=== PATIENT | female | born 1950 | race Caucasian/White ===

== ENCOUNTER → 2016-12-30 | Outpatient (CLI) | payer MEDICARE ==
[~2016-12-30] MED LIST: CANA100T PO; CARB200T PO; CITA20TA9 PO; CLON0.5T PO; CYCL-259 PO; ESZO1TAB6 PO; HYDR-3307 PO; LEVO7.5T PO; LISI-170 PO; LISI40TA PO; METF10002 PO; METF500T3 PO; METO-95 PO; MIRT30TA PO; OMEP40CA3 PO; OXYB10TA6 PO; SENN-1 PO; ZOLP-413 PO
== END | disposition home or self-care (01) ==
LOC: CFH 14:00
PROVIDERS: ATTEND Nurse Practitioner
DX: Z12.31 Encounter for screening mammogram for malignant neoplasm of breast (principal)
CPT/HCPCS: G0202

== ENCOUNTER 2017-05-13 18:11 | Emergency (ER) | payer MEDICARE ==
[~2017-05-13] VITALS: Ht 167.6 cm; Wt 117.0 kg
[~2017-05-13 18:11] MED LIST changes: +QUET100T4 PO; +SITA100T PO; +SUCR1ORA11 PO; +ZOLP12.52 PO
[2017-05-13] MEDS ORDERED: BUPIVACAINE 0.25% INFIL ONE (18:30)
[2017-05-13] MEDS ORDERED: LIDOCAINE 1%, 20ML SQ ONE (18:30)
[2017-05-13] MEDS ORDERED: BUPIVACAINE 0.25% ONE (18:37)
[2017-05-13] MEDS ORDERED: LIDOCAINE 1%, 20ML ONE (18:37)
[2017-05-13 20:15] VITALS: BP 120/60
== END 2017-05-13 21:55 | disposition home or self-care (01) ==
LOC: ED 20:38
DX: S62.632A Displaced fracture of distal phalanx of right middle finger, initial encounter for closed fracture (principal); S61.312A Laceration without foreign body of right middle finger with damage to nail, initial encounter; W23.0XXA Caught, crushed, jammed, or pinched between moving objects, initial encounter; Y93.89 Activity, other specified; Y92.89 Other specified places as the place of occurrence of the external cause; Y99.8 Other external cause status
CPT/HCPCS: 11760; 73140; 99285; J3490

== ENCOUNTER 2017-05-27 02:54 | Emergency (ER) | payer MEDICARE ==
[~2017-05-27] VITALS: Ht 170.2 cm; Wt 104.5 kg
[2017-05-27] MEDS ORDERED: LIDOCAINE 1%, 20ML ONE (03:11)
[2017-05-27] MEDS ORDERED: LIDOCAINE 1%, 10ML INFIL ONE (03:30)
[2017-05-27] MEDS ORDERED: BACITRACIN ZINC OINT 500U/GM, 0.9 GM ONE (04:17)
[2017-05-27 04:54] VITALS: BP 120/77
== END 2017-05-27 04:57 | disposition home or self-care (01) ==
LOC: ED 03:30
DX: S61.452A Open bite of left hand, initial encounter (principal); S51.851A Open bite of right forearm, initial encounter; S01.551A Open bite of lip, initial encounter; E11.9 Type 2 diabetes mellitus without complications; E78.00 Pure hypercholesterolemia, unspecified; W54.0XXA Bitten by dog, initial encounter; Y93.89 Activity, other specified; Y92.009 Unspecified place in unspecified non-institutional (private) residence as the place of occurrence of the external cause; Y99.9 Unspecified external cause status
CPT/HCPCS: 12002; 40650; 99284

== ENCOUNTER 2017-05-31 12:06 | Emergency (ER) | payer MEDICARE ==
[~2017-05-31] VITALS: Ht 170.2 cm; Wt 108.4 kg
[~2017-05-31 12:06] MED LIST changes: -ESZO1TAB6 PO; +ESZO1TAB8 PO
[2017-05-31 12:10] VITALS: BP 124/80
[2017-05-31] MEDS ORDERED: LIDOCAINE 1%, 20ML SQ ONE (13:00)
[2017-05-31] MEDS ORDERED: LIDOCAINE 1%, 20ML ONE (13:01)
[2017-05-31] MEDS ORDERED: BACITRACIN ZINC OINT 500U/GM, 0.9 GM ONE (13:39)
== END 2017-05-31 13:53 | disposition home or self-care (01) ==
LOC: ED 13:40
DX: S61.300A Unspecified open wound of right index finger with damage to nail, initial encounter (principal); L03.011 Cellulitis of right finger; S51.852A Open bite of left forearm, initial encounter; S51.851A Open bite of right forearm, initial encounter; E11.9 Type 2 diabetes mellitus without complications; E78.00 Pure hypercholesterolemia, unspecified; W54.0XXA Bitten by dog, initial encounter; Y93.89 Activity, other specified; Y92.89 Other specified places as the place of occurrence of the external cause; Y99.9 Unspecified external cause status
CPT/HCPCS: 11750; 82962

== ENCOUNTER → 2018-01-18 | Outpatient (CLI) | payer MEDICARE | END | disposition home or self-care (01) | LOC: CFH 13:33 | PROVIDERS: ATTEND Nurse Practitioner | DX: Z13.820 Encounter for screening for osteoporosis (principal); N95.9 Unspecified menopausal and perimenopausal disorder; R92.1 Mammographic calcification found on diagnostic imaging of breast; Z80.3 Family history of malignant neoplasm of breast | CPT/HCPCS: 77080; 77066 ==

== ENCOUNTER 2018-10-26 17:00 | Emergency (ER) | payer MEDICARE ==
[~2018-10-26] VITALS: Ht 170.2 cm; Wt 90.0 kg
[~2018-10-26 17:00] MED LIST changes: -SENN-1 PO; +SENN-92 PO
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
[2018-10-26] MEDS ORDERED: ZIPRASIDONE 20 MG INJ IM ONE ×2 (17:36→18:00)
[2018-10-26 18:08] LABS: BASOPHILS # (AUTO) 0.04 x10^3/uL (0-0.1); BASOPHILS % (AUTO) 0 % (0-1); EOSINOPHILS # (AUTO) 0.22 x10^3/uL (0-0.4); EOSINOPHILS % (AUTO) 2 % (1-7); LYMPHOCYTES # (AUTO) 2.61 x10^3/uL (1-3.4); LYMPHOCYTES % (AUTO) 26 % (22-44); MD NO; MEAN CORPUSCULAR HEMOGLOBIN 31.6 pg (27.0-34.8); MEAN CORPUSCULAR HGB CONC 34.1 g/dL (32.4-35.8); MEAN CORPUSCULAR VOLUME 92.4 fL (80-100); MEAN PLATELET VOLUME 7.6 fL (7.4-10.4); MONOCYTES # (AUTO) 0.53 x10^3/uL (0.2-0.8); MONOCYTES % (AUTO) 5 % (2-9); NEUTROPHILS # (AUTO) 6.54 x10^3/uL (1.8-6.8); NEUTROPHILS % (AUTO) 66 % (42-75); PLATELET COUNT 246 x10^3/uL (130-400); RED BLOOD COUNT 4.73 x10^6/uL (3.82-5.3); RED CELL DISTRIBUTION WIDTH 14.1 % (9.6-15.2)
--- NOTE | 2018-10-26 18:10 | NUR ---
PT SUDDENLY LEFT HER ROOM STATING SHE WAS LEAVING. SITTER ALERTED SECURITY. SECURITY BROUGHT PT BACK TO HER ROOM. PT WAS HIGHLY AGITATED, CURSING AT ALL STAFF. THIS RN ASKED PT IF SHE COULD TRY TO STAY IN HER ROOM AND NOT GO OUT INTO THE SNOW WITHOUT CLOTHES. PT BECAME ANGRY AT THIS QUESTIONING "YOU BITCH" AND STARTED TO GET OFF THE GURNEY. SHE STATED "DON'T TALK TO ME LIKE THAT" PT BECAME MORE UPSET WHEN INFORMED THAT IM GEODON HAD BEEN ORDERED TO BE GIVEN FOR HER SAFETY. PT WAS PHYSICALLY RESTRAINED BRIEFLY FOR IM INJECTION. PT WAS COMBATIVE , AND 4 PT LEATHER RESTRAINTS WERE PLACED FOR STAFF AND PT SAFETY. PT WAS KICKING AT STAFF. ADVISED OF RESTRAINTS.
[2018-10-26 18:19] LABS: ALANINE AMINOTRANSFERASE 57 U/L (12-78); ALBUMIN 4.2 g/dL (3.4-5.0); ANION GAP 11 mmol/L (5-15); CALCIUM 9.3 mg/dL (8.5-10.1); CHLORIDE 112 mmol/L (98-107); CREATININE 1.07 mg/dL (0.55-1.02); SALICYLATE LEVEL < 1.7 mg/dL (2.8-20.0)
--- NOTE | 2018-10-26 18:20 | NUR ---
PT IS CALMER AT THIS TIME. SPOKE WITH PT ABOUT ANAYELI FOR SAFETY. PT VERBALIZED UNDERSTANDING AND AGREED TO REMAIN CALM IN ED. RESTRAINTS WERE REMOVED. SITTER IS WITHIN DIRECT LINE OF SIGHT. PILLOW AND BLANKET GIVEN. PO FLUIDS AT BEDSIDE.
[2018-10-26 18:21] LABS: ALKALINE PHOSPHATASE 98 U/L (45-117); BILIRUBIN,TOTAL 0.4 mg/dL (0.2-1.0)
[2018-10-26 18:24] LABS: ACETAMINOPHEN < 2 mcg/mL (10-30)
--- NOTE | 2018-10-26 18:40 | NUR ---
SITTER IS WITHIN DIRECT LINE OF SIGHT . PT IS RESTING ON GURNEY WITH EYES CLOSED. VSS. MONITORING O2 SAT, HR AND BP.
--- NOTE | 2018-10-26 18:59 | NUR ---
REPORT TO ASA NICHOLS.
--- NOTE | 2018-10-26 19:04 | NUR ---
PT'S PIERCE NAVARRO, #[phone]. CALLED TO CHECK ON HER WELFARE.
--- NOTE | 2018-10-26 19:33 | NUR ---
LATE ENTRY 1905- PT RESTING WITH EYES CLOSED, NADN, EQUAL CHEST RISE/FALL OBSERVED, ROOM SECURED, PERSONAL BELONGINGS LOCKED IN SECURITY LOCKER, SITTER AT DOORWAY FOR CONTINOUS MONITORING.
--- NOTE | 2018-10-26 20:08 | NUR ---
PT RESTING WITH EYES CLOSED, PT REPOSITIONED SELF ON GURNEY, EQUAL CHEST RISE/FALL OBSERVED, NADN, SITTER AT DOORWAY FOR CONTINOUS MONITORING.
--- NOTE | 2018-10-26 21:39 | NUR ---
URINE SAMPLE TAKEN TO LAB
--- NOTE | 2018-10-26 21:56 | NUR ---
PT RESTING ON GURNEY, PROVIDED PT WITH SANDWICH AND DRINK, SI PRECAUTIONS MAINTAINED, ROOM REMAINS SECURED, PT DENIES FURTHER NEEDS, SITTER AT DOORWAY FOR CONTINOUS MONITORING.
[2018-10-26 22:02] LABS: AMPHETAMINE SCREEN, URINE Negative (Negative); BARBITURATE SCREEN, URINE Negative (Negative); BENZODIAZEPINE SCREEN, URINE Negative (Negative); CANNABINOID SCREEN, URINE Positive (Negative); COCAINE SCREEN, URINE Negative (Negative); METHADONE SCREEN, URINE Negative (Negative); OPIATE SCREEN, URINE Negative (Negative)
--- NOTE | 2018-10-26 23:30 | NUR ---
PT RESTING WITH EYES CLOSED, PT REPOSITIONED SELF ON GURNEY, EQUAL CHEST RISE/FALL OBSERVED, NADN, SITTER AT DOORWAY FOR CONTINOUS MONITORING.
--- NOTE | 2018-10-27 00:42 | NUR ---
PT RESTING CALMLY, PROVIDED PT WITH DRINK, DENIES FURTHER NEEDS, NAD, SITTER AT DOORWAY FOR CONTINOUS MONITORING.
--- NOTE | 2018-10-27 01:45 | NUR ---
PT RESTING ON GURNEY WITH EYES OPEN, NAD, DENIES NEEDS, SITTER AT DOORWAY FOR CONTINOUS MONITORING.
[2018-10-27] MEDS ORDERED: BUPR-173 PO (02:05)
[2018-10-27] MEDS ORDERED: CLON1TAB PO (02:05)
--- NOTE | 2018-10-27 02:18 | NUR ---
PT RESTING ON GURNEY WITH EYES OPEN, NAD, DENIES NEEDS, SITTER AT DOORWAY FOR CONTINOUS MONITORING.
--- NOTE | 2018-10-27 03:35 | NUR ---
PT RESTING ON CHYNA HENNING, BREATHALYZER RECHECKED 0.066, SITTER AT DOORWAY FOR CONTINOUS MONITORING.
--- NOTE | 2018-10-27 04:04 | NUR ---
SOC ON TELEPHONE, UPDATED ON PT'S STATUS, H/X, LABS
--- NOTE | 2018-10-27 04:40 | NUR ---
PT RESTING CALMLY AWAITING TELEPSYCH CONSULT, PROVIDED PT WITH DRINK, DENIES FURTHER NEEDS, SITTER AT DOORWAY FOR CONTINOUS MONITORING.
[2018-10-27] MEDS ORDERED: ACETAMINOPHEN 500 MG TABLET ONE (04:46)
--- NOTE | 2018-10-27 04:50 | NUR ---
PT REQUESTING TYLENOL FOR HEADACHE, DISCUSSED ALLERGIES, PT STATED " I'M NOT ALLERGIC TO TYLENOL", ERP UPDATED ORDER RECIEVED.
--- NOTE | 2018-10-27 04:57 | NUR ---
PT MOVED FROM 1 TO 38 TO ALLEVIATE SITTERS. REPORT FROM ASA NICHOLS. THIS RN TO ASSUME CARE OF PT. ROLLER DOORS IN PLACE. SITTER IN HALLWAY. NO IMMEDIATE NEEDS FROM PT.
--- NOTE | 2018-10-27 04:58 | NUR ---
TELEPSYCH AT BEDSIDE.
[2018-10-27] MEDS ORDERED: ACETAMINOPHEN 500 MG TABLET PO ONE (05:00)
--- NOTE | 2018-10-27 06:18 | NUR ---
PT RESTING ON GURNEY WITH EYES OPEN, NAD, DENIES NEEDS, SITTER AT DOORWAY FOR CONTINOUS MONITORING.
--- NOTE | 2018-10-27 06:48 | NUR ---
RECEIVED BEDSIDE REPORT FROM SIMONE SHARPE.
--- NOTE | 2018-10-27 06:58 | NUR ---
PT STANDING IN DOORWAY. PT CALM. PT STEADY ON FEET. DIET HAS BEEN ORDERED.
--- NOTE | 2018-10-27 06:59 | NUR ---
ALL SAFETY MEASURES OBTAINED. SITTER AT DOORWAY.
[2018-10-27 07:30] VITALS: BP 128/74
--- NOTE | 2018-10-27 08:10 | NUR ---
pt resting on gurney. no acute distress noted. spoke with significant other. will call him back with more information if discharge is in the near future.
--- NOTE | 2018-10-27 08:54 | NUR ---
Patient/Caregiver given discharge instructions and they have confirmed that they understand the instructions. Patient ambulatory with steady gait. PT LEFT WITH ALL PERSONAL BELONGINGS.
== END 2018-10-27 08:56 | disposition home or self-care (01) ==
LOC: ED 20:11
DX: R45.851 Suicidal ideations (principal); F10.220 Alcohol dependence with intoxication, uncomplicated; E11.9 Type 2 diabetes mellitus without complications; E78.00 Pure hypercholesterolemia, unspecified
CPT/HCPCS: 36415; 80053; 80307; 80329; 85025; 96372; 99284; J3486; G0480